=== PATIENT | female | born 1960 | race Caucasian/White ===

== ENCOUNTER 2021-03-08 07:47 | Emergency (ER) | payer OTHER, MEDICAID ==
[~2021-03-08] VITALS: Ht 154.9 cm; Wt 95.0 kg
--- NOTE | 2021-03-08 08:55 | NUR ---
PT TO ROOM FROM LOBBY VIA WHEELCHAIR
[2021-03-08] MEDS ORDERED: KETOROLAC 30 MG/1 ML ONE (09:11)
--- NOTE | 2021-03-08 09:23 | NUR ---
PT TO ROOM 23 W/ C/O MGLF YESTERDAY AFTER PT MISTEPPED ON STAIRS. PT DENIES HITTING HEAD/LOC. PT STATES SHE CONTINUED TO WALK ON IT AND AWOKE THIS AM W/ R LEG PAIN, BRUISING, SWELLING. PT RESTING ON GURNEY. NADN. CMS INTACT. MONITORS APPLIED. VSS. WARM BLANKET PROVIDED. CALL LIGHT IN REACH.
[2021-03-08] MEDS ORDERED: KETOROLAC 30 MG/1 ML IM ONE (09:30)
[2021-03-08 10:11] VITALS: BP 156/85
--- NOTE | 2021-03-08 10:13 | NUR ---
PT RESTING ON GURNEY. NADN. MORALES.
== END 2021-03-08 10:42 | disposition home or self-care (01) ==
LOC: ED 10:35
DX: S92.344A Nondisplaced fracture of fourth metatarsal bone, right foot, initial encounter for closed fracture (principal); S92.511A Displaced fracture of proximal phalanx of right lesser toe(s), initial encounter for closed fracture; W01.0XXA Fall on same level from slipping, tripping and stumbling without subsequent striking against object, initial encounter; Y93.01 Activity, walking, marching and hiking; Y92.009 Unspecified place in unspecified non-institutional (private) residence as the place of occurrence of the external cause; Y99.8 Other external cause status
CPT/HCPCS: 73630; 96372; 99283; J1885